=== PATIENT | male | born 1965 | race Caucasian/White ===

== ENCOUNTER 2016-06-09 16:40 | Emergency (ER) | payer MEDICAID ==
[2016-06-09] MEDS ORDERED: SODIUM CHLORIDE 0.9% 1,000 ML IV ONE (16:49)
[2016-06-09] MEDS ORDERED: KETOROLAC 60 MG/2 ML VIAL IVP STA (16:49)
[2016-06-09] MEDS ORDERED: HYDROmorphone 1 MG/ML SYRINGE IVP STA ×3 (16:49→20:31)
[2016-06-09] MEDS ORDERED: ONDANSETRON 4 MG/2 ML VIAL IVP STA (16:49)
[2016-06-09] MEDS ORDERED: HYDROmorphone 1 MG/ML SYRINGE ONE ×3 (17:01→20:39)
[2016-06-09] MEDS ORDERED: KETOROLAC 30 MG/ML VIAL ONE (17:01)
[2016-06-09] MEDS ORDERED: ONDANSETRON 4 MG/2 ML VIAL ONE (17:01)
[2016-06-09] MEDS ORDERED: oxyCODONE/ACET 5/325 Prepack 4 PO STA (20:27)
[2016-06-09] MEDS ORDERED: oxyCODONE/ACET 5/325 Prepack 4 PO ONE (20:31)
== END 2016-06-09 20:51 | disposition home or self-care (01) ==
DX: T83.84XA Pain due to genitourinary prosthetic devices, implants and grafts, initial encounter (principal); N13.2 Hydronephrosis with renal and ureteral calculous obstruction
CPT/HCPCS: 36415; 76770; 80048; 81001; 87086; 96374; 96375; 96376; 99284; J1170

== ENCOUNTER 2016-08-20 19:24 | Emergency (ER) | payer MEDICAID ==
[2016-08-20] MEDS ORDERED: HYDROcod/ACETAM 5/325 MG TABLET PO STA (19:38)
[2016-08-20] MEDS ORDERED: HYDROcod/ACETAM 5/325 MG TABLET ONE (19:40)
--- NOTE | 2016-08-20 19:47 | ED Physician Documentation ---
History of Present Illness - Stated complaint Stated Complaint: MALE - Chief complaint Chief Complaint: General - History obtained from History obtained from: Patient, Family - History of Present Illness Timing: Other (One month of worsening right left-sided rectal pain, especially when he is a bowel movement. Bowel movements have been normal. Had a colonoscopy done in March for hematochezia showing internal hemorrhoids. He has had hematochezia with this as well. No help with Preparation H.) Review of Systems Constitutional: denies: Fever, Chills Throat: denies: Dental pain / toothache, Sore throat Cardiac: denies: Chest pain / pressure, Palpitations Respiratory: denies: Dyspnea, Cough GI: denies: Abdominal Pain, Nausea, Constipation, Diarrhea PD PAST MEDICAL HISTORY - Past Medical History Cardiovascular: None Neuro: Head injury Endocrine/Autoimmune: None Psych: None Musculoskeletal: Chronic back pain - Past Surgical History Past Surgical History: Yes General: Appendectomy Ortho: Other - Present Medications Home Medications: Ambulatory Orders Medication Instructions Recorded Confirmed Hydrocodone/Acetaminophen [Vicodin 1 tab PO DAILY 01/01/16 06/09/16 Es 7.5-300 mg Tablet] Oxycodone HCl/Acetaminophen 1 - 2 tab PO Q4H PRN #15 tablet 06/09/16 [Percocet 5-325 mg Tablet] Amox/Clav 875/125 [Augmentin] 1 each PO Q12H #14 tablet 08/20/16 HYDROcod/ACETAM 5/325 [[place] 5/325] 1 - 2 ea PO Q6H PRN #10 tablet 08/20/16 - Allergies Allergies/Adverse Reactions: Allergies Allergy/AdvReac Type Severity Reaction Status Date / Time No Known Drug Allergies Allergy Verified 04/10/16 00:48 - Social History Does the pt smoke?: No Smoking Status: Never smoker Does the pt drink ETOH?: Yes Does the pt have substance abuse?: No - Immunizations Immunizations are current?: Yes - POLST Patient has POLST: No PD ED PE NORMAL - Vitals Vital signs reviewed: Yes - General General: Alert and oriented X 3, No acute distress - Abdomen Abdomen: Soft, Non tender - Male Male : Other (Tender the left side of the rectum with mild warmth but no obvious cellulitis or abscess. No external hemorrhoid.) - Neuro Neuro: Alert and oriented X 3, Normal speech - Psych Psych: Normal mood, Normal affect Results - Vitals Vitals: Vital Signs - 24 hr 08/20/16 19:27 Temperature 37.1 C Heart Rate 86 Respiratory 20 Rate Blood Pressure 110/80 O2 Saturation 96 Oxygen O2 Source Room air - Labs Labs: Laboratory Tests 08/20/16 08/20/16 19:47 19:47 WBC 8.0 RBC 4.56 L Hgb 14.7 Hct 42.0 MCV 92.1 MCH 32.2 H MCHC 34.9 RDW 13.3 Plt Count 260 MPV 8.3 Neut # 4.4 Lymph # 2.6 Wake # 0.4 Eos # 0.5 Baso # 0.1 Absolute Nucleated RBC 0.00 Nucleated RBCs 0.1 Sodium 139 Potassium 4.0 Chloride 103 Carbon Dioxide 29 Anion Gap 7.0 BUN 24 H Creatinine 1.3 H Estimated GFR (MDRD) 58 L Glucose 105 H Calcium 9.8 Total Bilirubin 0.4 AST 23 ALT 22 Alkaline Phosphatase 63 Total Protein 7.7 Albumin 4.4 Globulin 3.3 Albumin/Globulin Ratio 1.3 Lipase 78 H - Rads (name of study) CT Pelvis Radiology: EMP read contemporaneously (NAD) PD MEDICAL DECISION MAKING - ED course ED course: He has rectal pain, some tenderness and warmth on the left side, given the exam I was most concerned about an abscess. There is no evidence of external hemorrhoid. CT shows no evidence of abscess. I wonder if she might have a very early abscess or cellulitis. We will place him on antibiotics and painkillers. Departure - Departure Disposition: 01 Home, Self Care Clinical Impression: Rectal pain Condition: Good Record reviewed to determine appropriate education?: Yes Instructions: ED Hematochezia Stable Prescriptions: Amox/Clav 875/125 [Augmentin] 1 each PO Q12H #14 tablet HYDROcod/ACETAM 5/325 [[place] 5/325] 1 - 2 ea PO Q6H PRN #10 tablet PRN Reason: Pain Comments: Call your doctor to arrange a follow up appointment. Make the next available appointment. In the interim return anytime if worse or if new symptoms develop. Do not drink or drive while on narcotic pain medicine. Note that many narcotic pain relievers also contain tylenol/acetaminophen. Please ensure that your total dose of acetaminophen from all sources does not exceed 3 grams (3000mg) per day. You may constipated on this medication, take a stool softener such as "Colace" twice a day while you are on it. Also recommend a [id number] laxative such as senna or MiraLAX any day that you do not have a bowel movement. If you received narcotic pain medication in the emergency department, do not drive or operate machinery for the next 24 hours.
[2016-08-20 19:56] LABS: BASOPHILS # (AUTO) 0.1 10^3/uL (0.0-0.1); BASOPHILS % (AUTO) 0.9 %; EOSINOPHILS # (AUTO) 0.5 10^3/uL (0.0-0.7); EOSINOPHILS % (AUTO) 6.1 %; HGB - HEMOGLOBIN 14.7 g/dL (14.0-18.0); LYMPHOCYTES # (AUTO) 2.6 10^3/uL (1.5-3.5); LYMPHOCYTES % (AUTO) 32.7 %; MEAN CORPUSCULAR HEMOGLOBIN 32.2 pg (27.0-31.0); MEAN CORPUSCULAR HGB CONC 34.9 g/dL (32.0-36.0); MEAN CORPUSCULAR VOLUME 92.1 fL (80.0-94.0); MEAN PLATELET VOLUME 8.3 fL (7.4-11.4); MONOCYTES # (AUTO) 0.4 10^3/uL (0.0-1.0); NEUTROPHILS # (AUTO) 4.4 10^3/uL (1.5-6.6); NEUTROPHILS % (AUTO) 55.3 %; NUCLEATED RED BLOOD CELLS AUTO 0.1 /100WBC; RED BLOOD COUNT 4.56 10^6/uL (4.70-6.10); RED CELL DISTRIBUTION WIDTH 13.3 % (12.0-15.0)
[2016-08-20] MEDS ORDERED: IOPAMIDOL-300 100 ML VIAL IVP ONE (20:06)
[2016-08-20 20:09] LABS: ALBUMIN/GLOBULIN RATIO 1.3 (1.0-2.2); BILIRUBIN,TOTAL 0.4 mg/dL (0.2-1.0); CALCIUM 9.8 mg/dL (8.5-10.3); CREATININE 1.3 mg/dL (0.6-1.2); TOTAL PROTEIN 7.7 g/dL (6.7-8.2)
--- NOTE | 2016-08-20 20:27 | CT Preliminary Report ---
Exam: CT Pelvis W/ IMPRESSION: No evidence of abscess or acute inflammatory process within the pelvis. [facility] SITE ID: [id number]
--- NOTE | 2016-08-20 20:29 | CT Report ---
EXAM: CT PELVIS EXAM DATE: 08/20/2016 08:08 PM. CLINICAL HISTORY: Rectal pain, poss L side abscess, no PO. COMPARISONS: 04/09/2016 CT. TECHNIQUE: Routine helical CT imaging was performed through the pelvis. IV contrast: 100 mL Isovue-30 0. Enteric contrast: No. Reconstructions: Coronal and sagittal. In accordance with CT protocol optimization, one or more of the following dose reduction techniques w ere utilized for this exam: automated exposure control, adjustment of mA and/or KV based on patient s ize, or use of iterative reconstructive technique. FINDINGS: Visualized Abdominal Organs: There is a 4.3 cm right renal cyst. Tiny hypodensity at the lower pole o f the left kidney most likely representing a cyst. Peritoneal Cavity/Bowel: Normal. No free fluid, free air or adenopathy. No masses or acute inflammato ry process. The appendix is well visualized and normal. Scattered diverticula. Pelvic Organs: Normal. The bladder, rectum, and visualized pelvic organs are within normal limits. Vasculature: No aneurysms or other significant abnormality. Bones: No significant abnormality. Other: None. IMPRESSION: No evidence of abscess or acute inflammatory process within the pelvis. [facility] Referring Provider Line: [phone] SITE ID: [id number]
[2016-08-20] MEDS ORDERED: HYDROcod/ACET 5/325 Prepack 6 PO STA (20:31)
[2016-08-20] MEDS ORDERED: AMOX/CLAV 875 MG/125 MG TABLET PO STA (20:31)
[2016-08-20] MEDS ORDERED: AMOX/CLAV 875 MG/125 MG TABLET PO ONE (20:33)
[2016-08-20] MEDS ORDERED: HYDROcod/ACET 5/325 Prepack 6 PO ONE (20:33)
[2016-08-20 20:47] VITALS: BP 113/77
== END 2016-08-20 20:47 | disposition home or self-care (01) ==
LOC: ED 19:24
DX: K62.89 Other specified diseases of anus and rectum (principal)
CPT/HCPCS: 36415; 72193; 80053; 83690; 85025; 99283; 99284; A9270; Q9967

== ENCOUNTER 2017-05-22 08:45 | Outpatient (CLI) | payer MEDICAID, OTHER ==
[2017-05-22 13:17] LABS: BASOPHILS # (AUTO) 0.1 10^3/uL (0.0-0.1); BASOPHILS % (AUTO) 0.8 %; EOSINOPHILS # (AUTO) 0.5 10^3/uL (0.0-0.7); EOSINOPHILS % (AUTO) 7.2 %; HGB - HEMOGLOBIN 14.8 g/dL (14.0-18.0); LYMPHOCYTES % (AUTO) 27.6 %; MEAN CORPUSCULAR HEMOGLOBIN 32.1 pg (27.0-31.0); MEAN CORPUSCULAR HGB CONC 34.6 g/dL (32.0-36.0); MEAN CORPUSCULAR VOLUME 92.9 fL (80.0-94.0); MEAN PLATELET VOLUME 8.4 fL (7.4-11.4); MONOCYTES # (AUTO) 0.5 10^3/uL (0.0-1.0); MONOCYTES % (AUTO) 6.3 %; NEUTROPHILS # (AUTO) 4.2 10^3/uL (1.5-6.6); NEUTROPHILS % (AUTO) 58.1 %; PLT - PLATELET COUNT 265 10^3/uL (130-450); RED BLOOD COUNT 4.61 10^6/uL (4.70-6.10); RED CELL DISTRIBUTION WIDTH 13.3 % (12.0-15.0); WHITE BLOOD COUNT 7.2 x10^3/uL (4.8-10.8)
[2017-05-22 13:18] LABS: ALBUMIN 4.1 g/dL (3.2-5.5); ALBUMIN/GLOBULIN RATIO 1.2 (1.0-2.2); ALKALINE PHOSPHATASE 62 IU/L (42-121); ALT ALANINE AMINOTRANSFERASE 24 IU/L (10-60); AST ASPARTATE AMINOTRANSFERASE 29 IU/L (10-42); BILIRUBIN,TOTAL 0.6 mg/dL (0.2-1.0); BUN - BLOOD UREA NITROGEN 23 mg/dL (6-20); CALCIUM 9.5 mg/dL (8.5-10.3); CARBON DIOXIDE - CO2 25 mmol/L (21-32); CHLORIDE 107 mmol/L (101-111); CHOL/HDL RATIO 5.5 (<5.0); CHOLESTEROL 170 mg/dL; CREATININE 1.2 mg/dL (0.6-1.2); GFR - MDRD 63 (>89); GLUCOSE 105 mg/dL (70-100); HDL CHOLESTEROL 31 mg/dL; LDL CHOLESTEROL,CALCULATED 84 mg/dL; LDL/HDL RATIO 2.7 (<3.6); SODIUM 138 mmol/L (135-145); TOTAL PROTEIN 7.4 g/dL (6.7-8.2); VLDL CHOLESTEROL 55 mg/dL
== END 2017-05-22 08:46 | disposition home or self-care (01) ==
LOC: LAB.WCP 08:45
PROVIDERS: ATTEND Family Medicine
DX: Z00.00 Encounter for general adult medical examination without abnormal findings (principal); Z12.5 Encounter for screening for malignant neoplasm of prostate
CPT/HCPCS: 36415; 80053; 80061; 83721; 84153; 84443; 85025

== ENCOUNTER 2019-04-23 20:45 | Emergency (ER) | payer SELFPAY ==
[2019-04-23] MEDS ORDERED: CHERRY SYRUP 10 ML UDC PO ONE (21:29)
[2019-04-23] MEDS ORDERED: HYDROmorphone 2 MG/ML VIAL IM STA (21:29)
[2019-04-23] MEDS ORDERED: DEXAMETHASONE 10 MG/ML VIAL PO STA (21:29)
[2019-04-23] MEDS ORDERED: GABAPENTIN 100 MG CAPSULE PO STA (21:29)
[2019-04-23] MEDS ORDERED: KETOROLAC 60 MG/2 ML VIAL IM STA (21:29)
--- NOTE | 2019-04-23 21:32 | ED Physician Documentation ---
History of Present Illness - Stated complaint Stated Complaint: RT ARM PX/NUMBNESS - Chief complaint Chief Complaint: Ext Problem - History obtained from History obtained from: Patient - History of Present Illness Timing: Other (He woke from a nap 2 days ago with partial numbness in the right third and fourth fingers associated with a burning pain across the top of his hand with shocklike hurting sensations up to the neck.) Review of Systems Constitutional: denies: Fever, Chills Cardiac: reports: Reviewed and negative Respiratory: reports: Reviewed and negative PD PAST MEDICAL HISTORY - Past Medical History Past Medical History: Yes Cardiovascular: None Endocrine/Autoimmune: None Psych: None Musculoskeletal: Chronic back pain - Past Surgical History Past Surgical History: Yes General: Appendectomy Ortho: Other - Present Medications Home Medications: Ambulatory Orders Medication Instructions Recorded Confirmed Hydrocodone/Acetaminophen [Vicodin 1 tab PO DAILY 01/01/16 06/09/16 Es 7.5-300 mg Tablet] Oxycodone HCl/Acetaminophen 1 - 2 tab PO Q4H PRN #15 tablet 06/09/16 [Percocet 5-325 mg Tablet] Amox/Clav 875/125 [Augmentin] 1 each PO Q12H #14 tablet 08/20/16 HYDROcod/ACETAM 5/325 [[place] 5/325] 1 - 2 ea PO Q6H PRN #10 tablet 08/20/16 Gabapentin [Neurontin] 300 mg PO TID #60 capsule 04/23/19 Oxycodone HCl/Acetaminophen 1 - 2 each PO Q6H PRN #14 tablet 04/23/19 [Percocet 5-325 mg Tablet] predniSONE [Deltasone] 20 mg PO [id number] #21 tab 04/23/19 - Allergies Allergies/Adverse Reactions: Allergies Allergy/AdvReac Type Severity Reaction Status Date / Time No Known Drug Allergies Allergy Verified 04/23/19 20:52 - Social History Does the pt smoke?: No Smoking Status: Never smoker Does the pt drink ETOH?: Yes Does the pt have substance abuse?: No - Immunizations Immunizations are current?: Yes - POLST Patient has POLST: No PD ED PE NORMAL - General General: Alert and oriented X 3, No acute distress - Neck Neck: Supple, no meningeal sign, No bony TTP - Extremities Extremities: Other (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 He has partial numbness in the right C7 distribution. Upper extremity reflexes are symmetric.) - Neuro Neuro: Alert and oriented X 3, Normal speech Results - Vitals Vitals: Vital Signs - 24 hr 04/23/19 20:52 Temperature 36.9 C Heart Rate 72 Respiratory 14 Rate Blood Pressure 118/76 O2 Saturation 98 Oxygen O2 Source Room air PD MEDICAL DECISION MAKING - ED course ED course: 53-year-old gentleman who has a history of multiple herniated disks in the neck and the back presents with an acute cervical radiculopathy which is treated with steroids, pain medication and gabapentin pending primary care follow-up. Departure - Departure Disposition: Home, Self Care Clinical Impression: Cervical radiculopathy at C7 Condition: Good Record reviewed to determine appropriate education?: Yes Instructions: ED Cervical Radiculopathy Prescriptions: Gabapentin [Neurontin] 300 mg PO TID #60 capsule Oxycodone HCl/Acetaminophen [Percocet 5-325 mg Tablet] 1 - 2 each PO Q6H PRN #14 tablet PRN Reason: pain predniSONE [Deltasone] 20 mg PO [id number] #21 tab Comments: Follow-up With your primary care physician if symptoms are persistent, for consideration of physical therapy, plus or minus an MRI and/or spinal Surgery referral.
[2019-04-23] MEDS ORDERED: oxyCODONE/ACET 5/325 Prepack 4 PO STA (21:33)
[2019-04-23 22:01] VITALS: BP 133/93
== END 2019-04-23 22:00 | disposition home or self-care (01) ==
LOC: ED 20:45
DX: M54.12 Radiculopathy, cervical region (principal)
CPT/HCPCS: 96372; 99283; A9270; J1170

== ENCOUNTER 2019-07-09 14:32 | Outpatient (CLI) | payer SELFPAY | END 2019-07-09 14:33 | disposition home or self-care (01) | LOC: COV 14:32 | PROVIDERS: ATTEND Family Medicine | DX: R05 Cough (principal); R50.9 Fever, unspecified; Z20.828 Contact with and (suspected) exposure to other viral communicable diseases | CPT/HCPCS: 81599 ==

== ENCOUNTER 2019-12-27 14:19 | Outpatient (CLI) | payer SELFPAY | END 2019-12-27 14:20 | disposition home or self-care (01) | LOC: COV 14:19 | PROVIDERS: ATTEND Surgery | DX: Z01.818 Encounter for other preprocedural examination (principal); K62.5 Hemorrhage of anus and rectum; K60.3 Anal fistula; Z20.828 Contact with and (suspected) exposure to other viral communicable diseases ==

== ENCOUNTER 2019-12-31 10:26 | Day surgery (SDC) | payer SELFPAY ==
[~2019-12-31 10:26] MED LIST: LACTATED RINGERS 1,000 ML IV ONE
--- NOTE | 2019-12-31 13:34 | ANESTHESIA ---
Pre-Anesthesia VS, & Labs - Diagnosis rectal bleeding, anal fissure - Procedure Anoscopy, fistulotomy Vital Signs: Temp Pulse Resp BP Pulse Ox 36.1 C L 99 20 116/79 99 12/31/19 10:42 12/31/19 10:42 12/31/19 10:42 12/31/19 10:42 12/31/19 10:42 Height 5 ft 11 in Weight (kg) 111.8 kg Body Mass Index 31.6 - NPO >8 hours - Lab Results Lab results reviewed: Yes Home Medications and Allergies Home Medications: Ambulatory Orders No Known Home Medications 12/20/19 No Known Home Medications 12/20/19 Allergies/Adverse Reactions: Allergies Allergy/AdvReac Type Severity Reaction Status Date / Time No Known Drug Allergies Allergy Verified 04/23/19 20:52 Anes History & Medical History - Anesthetic History Anesthesia Complications: reports: No previous complications Family history of Anesthesia Complications: Denies Family history of Malignant Hyperthermia: Denies - Medical History Cardiovascular: reports: None Pulmonary: reports: None Gastrointestinal: reports: GERD Urinary: reports: Kidney stones Musculoskeletal: reports: Chronic back pain, Other Endocrine/Autoimmune: reports: None Skin: reports: None Smoking Status: Current every day smoker Psychosocial: reports: Cannabis - Surgical History General: Appendectomy, Colonoscopy Orthopedic: Spine surgery, Other Exam General: Alert, Oriented x3, Cooperative, No acute distress Dental: WNL Mouth Openin Fingerbreadth Neck Mobility: Normal Mallampati classification: II Respiratory: Lungs clear, Normal breath sounds, No respiratory distress, No accessory muscle use Cardiovascular: Regular rate, Normal S1, Normal S2, No murmurs Plan Anesthesia Type: General (back up), MAC Consent for Procedure(s) Verified and Reviewed: Yes Code Status: Attempt Resuscitation ASA classification: 2-Mild systemic disease Is this case an emergency?: No
[2019-12-31] MEDS ORDERED: MORPHINE 2 MG/ML CARPUJECT IVP PRN (13:35)
[2019-12-31] MEDS ORDERED: NALOXONE 0.4 MG/ML VIAL IVP PRN (13:35)
[2019-12-31] MEDS ORDERED: ATROPINE ABBOJECT 1 MG/10 ML SYRINGE IVP PRN (13:35)
[2019-12-31] MEDS ORDERED: ONDANSETRON 4 MG/2 ML VIAL IVP PRN (13:35)
[2019-12-31] MEDS ORDERED: fentaNYL 100 MCG/2 ML VIAL IVP PRN (13:35)
[2019-12-31] MEDS ORDERED: ePHEDrine 50 MG/ML VIAL IVP PRN (13:35)
[2019-12-31] MEDS ORDERED: METOCLOPRAMIDE 10 MG/2 ML VIAL IVP PRN (13:35)
[2019-12-31] MEDS ORDERED: HYDROmorphone 0.5 MG/0.5 ML SYRINGE IVP PRN (13:35)
[2019-12-31] MEDS ORDERED: LACTATED RINGERS 1,000 ML IV SCH (14:00)
[2019-12-31] MEDS ORDERED: METHYLENE BLUE 0.5% 50 MG/10 ML AMPULE ONE (14:12)
[2019-12-31] MEDS ORDERED: LIDOCAINE 1%-EPI 1:100000 20 ML MDV ONE (14:17)
[2019-12-31] MEDS ORDERED: LIDOCAINE 1% 50 ML MDV ONE (14:17)
[2019-12-31] MEDS ORDERED: LIDOCAINE OINTMENT 5% 35.44 GM TUBE ONE (14:17)
[2019-12-31] MEDS ORDERED: BUPIVACAINE 0.25%-EPI 1:200000 PF 30 ML VIAL ONE (14:17)
[2019-12-31] MEDS ORDERED: KETAMINE 500 MG/10 ML VIAL IVP ONE (14:24)
[2019-12-31] MEDS ORDERED: PROPOFOL 200 MG/20 ML VIAL IVP ONE (14:24)
[2019-12-31] MEDS ORDERED: MIDAZOLAM 2 MG/2 ML VIAL IVP ONE (14:24)
[2019-12-31] MEDS ORDERED: GLYCOPYRROLATE 1 MG/5 ML VIAL IVP ONE (14:24)
[2019-12-31] MEDS ORDERED: LIDOCAINE 1% 10 ML MDV SUBQ ONE ×2 (14:54)
[2019-12-31] MEDS ORDERED: BUPIVACAINE 0.25%-EPI 1:200000 PF 10 ML VIAL SUBQ ONE ×2 (14:55)
[2019-12-31] MEDS ORDERED: METHYLENE BLUE 0.5% 50 MG/10 ML AMPULE IR ONE ×2 (14:59)
[2019-12-31] MEDS ORDERED: HYDROGEN PEROXIDE 3% 473 ML BOTTLE TOP ONE (15:00)
[2019-12-31] MEDS ORDERED: LACTATED RINGERS 1,000 ML IV ONE (15:17)
[2019-12-31] MEDS: ACETAMINOPHEN 1,000 MG/100 ML 100 ML IV ONE ×2 (15:20→15:28)
--- NOTE | 2019-12-31 15:21 | ANESTHESIA POST OP EVALUATION ---
Anesthesia Post Eval - Post Anesthesia Eval Vitals: Last Vital Signs Temp 36.8 C 12/31/19 15:15 Pulse 81 12/31/19 15:15 Resp 16 12/31/19 15:15 BP 116/79 12/31/19 15:15 Pulse Ox 98 12/31/19 15:15 CV Function Including HR & BP: positive: Stable Pain Control: positive: Satisfactory Nausea & Vomiting: positive: Negative Mental Status: positive: Baseline Respiratory Status: Airway Patent Hydration Status: Satisfactory Anesthesia Complications: positive: None
[2019-12-31] MEDS ORDERED: ACETAMINOPHEN 1,000 MG/100 ML 100 ML IV ONE (15:22)
[2019-12-31] MEDS ORDERED: HYDROcod/ACETAM 10 MG/325 MG TABLET PO PRN (15:26)
[2019-12-31] MEDS ORDERED: HYDROcod/ACETAM 5/325 MG TABLET ONE (15:57)
[2019-12-31 16:00] VITALS: BP 138/73
--- NOTE | 2020-01-01 03:14 | OPERATIVE REPORT ---
DATE OF SERVICE: 12/31/2019 Physician: Arnel Higuera MD PREOPERATIVE DIAGNOSIS: Chronic anal discomfort and appearance of fistula on exam. POSTOPERATIVE DIAGNOSIS: Anal fissure without fistula. PROCEDURE PERFORMED: Examination under anesthesia. SURGEON: Arnel Higuera MD UNIT SECRETARY: None. ANESTHESIA: Monitored anesthesia care, IV sedation and local anesthesia. ESTIMATED BLOOD LOSS: None. DRAINS: None. COMPLICATIONS: None. FINDINGS: Patient did have evidence of a posterior fissure and a sentinel tag. He did have small pockets under the anoderm; however, no complete fistula tract. INDICATIONS FOR PROCEDURE: The patient is a healthy 54-year-old gentleman who has had perianal discomfort and significant bleeding on and off for many years. He has had workup with colonoscopy. He has had hemorrhoid banding in the past. He continues to have fairly frequent bleeding. On physical examination, he appeared to possibly have a superficial fistula at 5 o'clock. Examination under anesthesia was offered and recommended. Risks discussed, alternatives discussed, all questions answered, and consent obtained. DETAILS OF PROCEDURE The patient was properly identified and brought to the operating room and placed in supine position. Monitored anesthesia care was given as well as IV sedation. He was repositioned in candy cane stirrups. He was prepped and draped in a sterile fashion and given preoperative antibiotics. Local anesthetic was given. External exam showed a posterior fissure and a sentinel tag. Methylene blue with hydrogen peroxide was then injected into this area looking for a fistula tract. Anoscopy was also performed, which was essentially normal. There were small flaps of anoderm cephalad and distal of the fissure, however, no fistula. These small pockets were removed to be certain there was not a fistula tract. Care was taken to avoid injury to the underlying sphincter musculature. He did not have an overly tense internal sphincter. There was no thick band of the internal sphincter. A lateral internal sphincterotomy was not performed. Hemostasis was ensured. The patient was awakened and brought to recovery in good condition. TD: 12/31/2019 17:28 [facility]
== END 2019-12-31 10:27 | disposition home or self-care (01) ==
LOC: SDS 10:26
PROVIDERS: ATTEND Surgery
DX: K60.1 Chronic anal fissure (principal); G47.30 Sleep apnea, unspecified; E66.9 Obesity, unspecified; Z68.35 Body mass index [BMI] 35.0-35.9, adult; F17.200 Nicotine dependence, unspecified, uncomplicated
CPT/HCPCS: 46615; A9270; J0131; J7120

== ENCOUNTER 2020-01-26 15:37 | Emergency (ER) | payer SELFPAY ==
--- NOTE | 2020-01-26 15:45 | ED Physician Documentation ---
PD HPI SKIN - Stated complaint Stated Complaint: SPIDER BITE, MOORE - Chief complaint Chief Complaint: Wound - History obtained from History obtained from: Patient - History of Present Illness Timing - onset: How many days ago (3) Timing - duration: Days (3) Timing - details: Gradual onset (3-4 days ago, noted some redness and tender right buttock area and it has gradually worsened. Seen by provider in [place] and Rx Doxycycline 2 days ago. Has gotten worse into today, with appearance of white pustule now.) Location: Other (right buttock.) Quality / character: Painful, Discolored (red), Raised, Swelling. No: Draining Associated symptoms: No: Fever, Abd pain, N/V/D Similar symptoms before: Has not had sx before Recently seen: Clinic (2 days ago), Other (he had anorectal exam with sedation in OR 3 weeks ago to eval for possible perirectal fistula, but none found. No skin problems around that time.) Review of Systems Constitutional: reports: Myalgias, Fatigue. denies: Fever, Chills Nose: denies: Rhinorrhea / runny nose, Congestion Throat: denies: Sore throat Respiratory: denies: Cough GI: denies: Nausea, Vomiting Skin: reports: Lesions (has abscess appearing lesion right buttock. No direct perirectal redness nor swelling. The involved area has raised swelling, local fluctuant feeling, small white pustule that is not draining. Area is red, warm and tender. Bedside U/S showing small 1-1.5 cm area of fluid just under the skin only.) PD PAST MEDICAL HISTORY - Past Medical History Cardiovascular: None Respiratory: None Endocrine/Autoimmune: None GI: GERD : Kidney stones HEENT: Chronic sinusitis Psych: Depression Musculoskeletal: Chronic back pain, Other Derm: None - Past Surgical History Past Surgical History: Yes General: Appendectomy, Colonoscopy Ortho: Spine surgery, Other - Present Medications Home Medications: Ambulatory Orders Medication Instructions Recorded Confirmed Hydrocodone/Acetaminophen 1 each PO Q4HR PRN #15 tablet 12/31/19 [Hydrocodone-Acetamin 5-325 mg] Hydrocodone/Acetaminophen 1 each PO Q6H PRN #15 tablet 01/26/20 [Hydrocodone-Acetamin 5-325 mg] - Allergies Allergies/Adverse Reactions: Allergies Allergy/AdvReac Type Severity Reaction Status Date / Time No Known Drug Allergies Allergy Verified 01/26/20 15:40 - Social History Does the pt smoke?: No Smoking Status: Current every day smoker Does the pt drink ETOH?: Yes Does the pt have substance abuse?: No - Immunizations Immunizations are current?: Yes - POLST Patient has POLST: No PD ED PE NORMAL - Vitals Vital signs reviewed: Yes - General General: Alert and oriented X 3, Well developed/nourished, Other (appears in pain on exam of buttock area. ) - Abdomen Abdomen: Soft, Non tender - Rectal Rectal: Other (buttock area with rounded, raised, very tender, mildly fluctuant area with central small 2 mm pustule. No tenderness immediate perirectal area. Bedside U/S with 1-1.5 cm area of fluid just under skin. No deeper collection nor obvious fistulous tract seen. ) Results - Vitals Vitals: Vital Signs - 24 hr 01/26/20 01/26/20 01/26/20 15:40 15:52 16:53 Temperature 36.8 C 36.8 C 36.8 C Heart Rate 100 100 98 Respiratory 16 16 16 Rate Blood Pressure 109/89 H 109/89 H 115/80 O2 Saturation 95 96 100 Oxygen O2 Source Room air Procedures - Abscess I&D (location) right buttock Preparation: Confirmed with ultrasound, Lidocaine 1%, With epi Incision: Incised with scalpel, Purulent drainage, Irrigated. No: Packed, Culture obtained Other: Pt tolerated well (given IM Dilaudid prior which helped with the pain.) PD MEDICAL DECISION MAKING - ED course Complexity details: considered differential (developing abscess now has localized fluid collection for drainage. ), d/w patient Departure - Departure Disposition: 01 Home, Self Care Clinical Impression: Left buttock abscess Condition: Stable Record reviewed to determine appropriate education?: Yes Instructions: ED Abscess IandD Prescriptions: Hydrocodone/Acetaminophen [Hydrocodone-Acetamin 5-325 mg] 1 each PO Q6H PRN #15 tablet PRN Reason: Pain Comments: Warm moist compresses or soaks 2-3 times a day to the area. Try to massage it gently at x2 express more purulence through the holes. Continue the antibiotic you are prescribed. Tylenol or ibuprofen if needed for pain. Hydrocodone if needed for worse pains. I would anticipate improvement over the next several days and resolution within 5 to 7 days. Discharge Date/Time: 01/26/20 16:53
[2020-01-26] MEDS ORDERED: LIDOCAINE-EPINEPH-TETRACAINE 3 ML SYRINGE TOP STA (16:00)
[2020-01-26] MEDS ORDERED: HYDROmorphone 2 MG/ML VIAL IM STA (16:01)
[2020-01-26] MEDS ORDERED: LIDOCAINE 1%-EPI 1:100000 20 ML MDV SUBQ STA (16:02)
[2020-01-26 16:54] VITALS: BP 115/80
== END 2020-01-26 16:53 | disposition home or self-care (01) ==
LOC: ED 15:37
DX: L02.31 Cutaneous abscess of buttock (principal)
CPT/HCPCS: 10060; 96372; 99283; J1170

== ENCOUNTER 2020-06-05 17:39 | Outpatient (CLI) | payer OTHER ==
--- NOTE | 2020-06-05 10:01 | XRAY Report ---
PROCEDURE: Shoulder 3 View RT INDICATIONS: RT SHOULDER PAIN TECHNIQUE: 4 views of the shoulder were acquired. COMPARISON: None. FINDINGS: Bones: No fractures. There is mild widening of the acromioclavicular interval to 7 mm.. Cortically based sclerotic foci within the proximal humerus, suggestive of nonossifying fibromas. No suspicious bony lesions. Visualized ribs appear intact. Soft tissues: No suspicious soft tissue calcifications. IMPRESSION: 1. Acromioclavicular separation. 2. 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 Reviewed by: Miroslava Faustin MD on 06/05/2020 9:59 AM PST Approved by: Miroslava Faustin MD on 06/05/2020 9:59 AM PST Station ID: [id number]
== END 2020-06-05 23:59 | disposition home or self-care (01) ==
LOC: DI.N 17:39
PROVIDERS: ATTEND Physician Assistant
DX: M25.511 Pain in right shoulder (principal); S43.101A Unspecified dislocation of right acromioclavicular joint, initial encounter

== ENCOUNTER 2020-06-29 16:36 | Emergency (ER) | payer MEDICAID ==
[2020-06-29 17:00] LABS: BASOPHILS # (AUTO) 0.1 10^3/uL (0.0-0.1); BASOPHILS % (AUTO) 1.1 %; EOSINOPHILS # (AUTO) 0.4 10^3/uL (0.0-0.7); EOSINOPHILS % (AUTO) 5.1 %; HCT - HEMATOCRIT 46.8 % (42.0-52.0); HGB - HEMOGLOBIN 16.4 g/dL (14.0-18.0); LYMPHOCYTES % (AUTO) 35.6 %; MEAN CORPUSCULAR HEMOGLOBIN 31.8 pg (27.0-31.0); MEAN CORPUSCULAR VOLUME 90.9 fL (80.0-94.0); MEAN PLATELET VOLUME 9.2 fL (7.4-11.4); MONOCYTES # (AUTO) 0.6 10^3/uL (0.0-1.0); MONOCYTES % (AUTO) 6.6 %; NEUTROPHILS # (AUTO) 4.3 10^3/uL (1.5-6.6); NEUTROPHILS % (AUTO) 51.4 %; PLT - PLATELET COUNT 302 10^3/uL (130-450); RED BLOOD COUNT 5.15 10^6/uL (4.70-6.10); RED CELL DISTRIBUTION WIDTH 12.7 % (12.0-15.0); WHITE BLOOD COUNT 8.4 x10^3/uL (4.8-10.8)
[2020-06-29 17:14] LABS: ALBUMIN 4.5 g/dL (3.2-5.5); ALBUMIN/GLOBULIN RATIO 1.3 (1.0-2.2); BILIRUBIN,TOTAL 0.8 mg/dL (0.2-1.0); CALCIUM 9.3 mg/dL (8.5-10.3); CREATININE 1.2 mg/dL (0.6-1.2); POTASSIUM 3.9 mmol/L (3.5-5.0); TOTAL PROTEIN 8.1 g/dL (6.7-8.2)
[2020-06-29] MEDS ORDERED: SODIUM CHLORIDE 0.9% 1,000 ML IV STA (17:23)
[2020-06-29] MEDS ORDERED: IOVERSOL 320 100 ML VIAL IVP ONE ×2 (17:37→17:51)
--- NOTE | 2020-06-29 17:49 | ED Physician Documentation ---
PD HPI ABD PAIN - Stated complaint Stated Complaint: ABD/BACK PAIN, DIZZY - Chief complaint Chief Complaint: Abd Pain - History obtained from History obtained from: Patient - History of Present Illness Pain level max: 6 Pain level now: 5 Quality: Aching, Pain Location: All over / everywhere Radiation: Chest Improved by: Eating, Laying still, Vomiting Worsened by: Eating, Moving, Breathing Associated symptoms: Nausea, Constipation. No: Fever, Vomiting, Hematemesis, Diarrhea, Melena, Hematochezia, Dysuria, Hematuria, Chest pain, Dizzy Recently seen: Not recently seen - Additional information Additional information: 54-year-old male presents to the emergency department with left lower quadrant abdominal pain for the past 2 to 3 days. Nothing seems to really make it better or worse. He states that he stopped using marijuana recently and has been a heavy marijuana user since age 9. 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 He has stopped all drug use. He states he has had some nausea, no fevers has had some constipation, no diarrhea, no blood in the stool. Has never had similar symptoms. Review of Systems Ten Systems: 10 systems reviewed and negative Constitutional: denies: Fever, Chills Throat: denies: Sore throat Cardiac: denies: Chest pain / pressure Respiratory: denies: Dyspnea, Cough GI: denies: Vomiting, Hematemesis, Bloody / black stool : denies: Dysuria, Frequency, Hesitancy Skin: denies: Rash Musculoskeletal: denies: Neck pain, Back pain Neurologic: denies: Headache PD PAST MEDICAL HISTORY - Past Medical History Cardiovascular: None Respiratory: None Endocrine/Autoimmune: None GI: GERD : Kidney stones HEENT: Chronic sinusitis Psych: Depression Musculoskeletal: Chronic back pain, Other Derm: None Other Past Medical History: prolapse mitral valve - Past Surgical History Past Surgical History: Yes General: Appendectomy, Colonoscopy Ortho: Spine surgery, Other - Present Medications Home Medications: Ambulatory Orders Medication Instructions Recorded Confirmed No Known Home Medications 06/29/20 06/29/20 - Allergies Allergies/Adverse Reactions: Allergies Allergy/AdvReac Type Severity Reaction Status Date / Time No Known Drug Allergies Allergy Verified 06/29/20 16:42 - Social History Does the pt smoke?: Yes Smoking Status: Current every day smoker Does the pt drink ETOH?: Yes Does the pt have substance abuse?: Yes Substance Use and Type: Marijuana - Immunizations Immunizations are current?: Yes - POLST Patient has POLST: No PD ED PE NORMAL - Vitals Vital signs reviewed: Yes - General General: Alert and oriented X 3, No acute distress, Well developed/nourished - HEENT HEENT: PERRL, Moist mucous membranes - Neck Neck: Supple, no meningeal sign - Cardiac Cardiac: RRR, Strong equal pulses - Respiratory Respiratory: No respiratory distress, Clear bilaterally - Abdomen Abdomen: Soft, Non distended, Other (Tender to palpation left lower quadrant. No peritoneal signs.) - Back Back: No CVA TTP, No spinal TTP - Derm Derm: Warm and dry - Extremities Extremities: No edema, No calf tenderness / cord - Neuro Neuro: Alert and oriented X 3 - Psych Psych: Normal mood, Normal affect Results - Vitals Vitals: Vital Signs - 24 hr 06/29/20 06/29/20 06/29/20 16:40 17:56 18:00 Temperature 36.3 C L Heart Rate 90 62 64 Respiratory 18 11 L 9 L Rate Blood Pressure 146/90 H 123/88 H 116/89 H O2 Saturation 96 99 100 06/29/20 06/29/20 18:30 19:27 Temperature Heart Rate 69 73 Respiratory 11 L 18 Rate Blood Pressure 138/91 H 133/91 H O2 Saturation 98 99 Oxygen O2 Source Room air - Labs Labs: Laboratory Tests 06/29/20 06/29/20 06/29/20 16:54 16:54 18:44 WBC 8.4 RBC 5.15 Hgb 16.4 Hct 46.8 MCV 90.9 MCH 31.8 H MCHC 35.0 RDW 12.7 Plt Count 302 MPV 9.2 Neut # (Auto) 4.3 Lymph # (Auto) 3.0 [place] # (Auto) 0.6 Eos # (Auto) 0.4 Baso # (Auto) 0.1 Absolute Nucleated RBC 0.00 Nucleated RBC % 0.0 Sodium 135 Potassium 3.9 Chloride 103 Carbon Dioxide 21 Anion Gap 11.0 BUN 24 H Creatinine 1.2 Estimated GFR (MDRD) 63 L Glucose 93 Calcium 9.3 Total Bilirubin 0.8 AST 24 ALT 33 Alkaline Phosphatase 50 Total Protein 8.1 Albumin 4.5 Globulin 3.6 Albumin/Globulin Ratio 1.3 Lipase 32 Urine Color YELLOW Urine Clarity CLEAR Urine pH 6.5 Ur Specific [place] 1.010 Urine Protein NEGATIVE Urine Glucose (UA) NEGATIVE Urine Ketones NEGATIVE Urine Occult Blood TRACE-INTA Urine Nitrite NEGATIVE Urine Bilirubin NEGATIVE Urine Urobilinogen 0.2 (NORMAL) Ur Leukocyte Esterase NEGATIVE Ur Microscopic Review NOT INDICATED Urine Culture Comments NOT INDICATED - Rads (name of study) CT abdomen pelvis Radiology: Prelim report reviewed, EMP read contemporaneously, See rad report (Diverticulosis. No diverticulitis. No free fluid. No hydronephrosis. Suspect punctate nonobstructing right kidney stone) PD MEDICAL DECISION MAKING - ED course Complexity details: reviewed results, re-evaluated patient, considered differential, d/w patient ED course: Patient is well-appearing, nontoxic. Afebrile. Feels much better after IV fluids. No significant findings on CT scan or laboratory testing. We will continue supportive care and have him follow-up with his doctor for further care. Tolerating p.o. without difficulty. Patient counseled regarding signs and symptoms for which I believe and urgent re-evaluation would be necessary. Patient with good understanding of and agreement to plan and is comfortable going home at this time This document was made in part using voice recognition software. While efforts are made to proofread this document, sound alike and grammatical errors may occur. Departure - Departure Disposition: 01 Home, Self Care Clinical Impression: Dehydration Abdominal pain Qualifiers: Abdominal location: unspecified location Qualified Code(s): R10.9 - Unspecified abdominal pain Condition: Good Instructions: ED Abdominal Pain Unkn Cause, ED Dehydration Follow-Up: Your,doctor in 1 week [Other] Comments: Plenty of water at home. Return if you worsen. Follow-up with your doctor for further care. There are no significant abnormalities on your labs or imaging today. Discharge Date/Time: 06/29/20 19:51
--- NOTE | 2020-06-29 18:00 | CT Report ---
PROCEDURE: Abdomen/Pelvis W INDICATIONS: LLQ pain, possible diverticulitis CONTRAST: IV CONTRAST: Optiray 320 ml: 100 PO CONTRAST: *NO PO CONTRAST TECHNIQUE: After the administration of intravenous contrast, 5 mm thick sections acquired from the diaphragms to the symphysis. 5 mm thick coronal and sagittal reformats were acquired. For radiation dose reducti on, the following was used: automated exposure control, adjustment of mA and/or kV according to stanley ent size. COMPARISON: 04/09/2016. FINDINGS: Image quality: Excellent. ABDOMEN: Lung bases: Lung bases are clear. Heart size is normal. Solid organs: Liver and spleen are normal in size and enhancement. Hypodense foci in the liver likel y benign cysts. Gallbladder is unremarkable Biliary system is non dilated. Pancreas enhances tonya lly. No adrenal nodules. Kidneys demonstrate normal size and enhancement, without hydronephrosis. B ilateral simple renal cysts. A few are too small to further characterize. Suspect right kidney inferi or pole nonobstructing calculus measuring 2 mm. Peritoneum and bowel: Bowel loops demonstrate normal wall thickness and caliber. A few colonic diver ticuli. No diverticulitis identified. Appendix is nondilated. No free fluid or air. Nodes and vessels: No retroperitoneal or mesenteric adenopathy by size criteria. Aorta and inferior vena cava are normal in size. Miscellaneous: Small fat-containing umbilical hernia. PELVIS: Genitourinary: Bladder is within normal limits. No bladder calculus. Miscellaneous: Question of fat-containing left internal hernia versus lipomatous hypertrophy. No anabela opathy. Bones: No suspicious bony lesions. No vertebral body compression fractures. IMPRESSION: 1. Diverticulosis. No diverticulitis. No free fluid. 2. No hydronephrosis. Suspect punctate nonobstructing right kidney stone. Reviewed by: Shasih Grayson MD on 06/29/2020 4:59 PM VICKIE Approved by: Shashi Grayson MD on 06/29/2020 4:59 PM AKDANYA Station ID: [id number]
[2020-06-29 18:52] LABS: BILIRUBIN,URINE NEGATIVE (NEGATIVE); GLUCOSE, URINE (UA) NEGATIVE (NEGATIVE); KETONES,URINE (UA) NEGATIVE (NEGATIVE); LEUKOCYTE ESTERASE, URINE NEGATIVE (NEGATIVE); NITRITE,URINE NEGATIVE (NEGATIVE); OCCULT BLOOD,URINE TRACE-INTA (NEGATIVE); PH,URINE 6.5 PH (5.0-7.5); PROTEIN,URINE NEGATIVE (NEGATIVE); UROBILINOGEN,URINE 0.2 (NORMAL) E.U./dL (NORMAL)
[2020-06-29 18:54] LABS: CLARITY,URINE CLEAR (CLEAR)
[2020-06-29 19:27] VITALS: BP 133/91
== END 2020-06-29 19:51 | disposition home or self-care (01) ==
LOC: ED 16:36
DX: E86.0 Dehydration (principal); R10.32 Left lower quadrant pain; F17.200 Nicotine dependence, unspecified, uncomplicated
CPT/HCPCS: 36415; 74177; 80053; 81003; 83690; 85025; 93005; 96360; 99284; Q9967; 81001; 87086

== ENCOUNTER 2020-07-06 07:05 | Outpatient (CLI) | payer MEDICAID ==
[2020-07-06 12:11] LABS: BASOPHILS # (AUTO) 0.1 10^3/uL (0.0-0.1); EOSINOPHILS # (AUTO) 0.4 10^3/uL (0.0-0.7); EOSINOPHILS % (AUTO) 5.9 %; HCT - HEMATOCRIT 48.7 % (42.0-52.0); HGB - HEMOGLOBIN 16.6 g/dL (14.0-18.0); LYMPHOCYTES # (AUTO) 2.3 10^3/uL (1.5-3.5); LYMPHOCYTES % (AUTO) 31.9 %; MEAN CORPUSCULAR HEMOGLOBIN 31.4 pg (27.0-31.0); MEAN CORPUSCULAR HGB CONC 34.1 g/dL (32.0-36.0); MEAN CORPUSCULAR VOLUME 92.1 fL (80.0-94.0); MEAN PLATELET VOLUME 9.9 fL (7.4-11.4); MONOCYTES # (AUTO) 0.4 10^3/uL (0.0-1.0); MONOCYTES % (AUTO) 5.5 %; NEUTROPHILS # (AUTO) 3.9 10^3/uL (1.5-6.6); NEUTROPHILS % (AUTO) 55.4 %; PLT - PLATELET COUNT 328 10^3/uL (130-450); RED BLOOD COUNT 5.29 10^6/uL (4.70-6.10); RED CELL DISTRIBUTION WIDTH 12.9 % (12.0-15.0); WHITE BLOOD COUNT 7.1 x10^3/uL (4.8-10.8)
[2020-07-06 12:41] LABS: ALBUMIN 5.1 g/dL (3.2-5.5); ALBUMIN/GLOBULIN RATIO 1.5 (1.0-2.2); ALKALINE PHOSPHATASE 58 IU/L (42-121); ALT ALANINE AMINOTRANSFERASE 29 IU/L (10-60); AST ASPARTATE AMINOTRANSFERASE 21 IU/L (10-42); BILIRUBIN,TOTAL 0.8 mg/dL (0.2-1.0); BUN - BLOOD UREA NITROGEN 20 mg/dL (6-20); CARBON DIOXIDE - CO2 28 mmol/L (21-32); CHLORIDE 105 mmol/L (101-111); CHOL/HDL RATIO 4.9 (<5.0); CHOLESTEROL 187 mg/dL; CREATININE 1.3 mg/dL (0.6-1.2); GFR - MDRD 57 (>89); GLUCOSE 95 mg/dL (70-100); HDL CHOLESTEROL 38 mg/dL; LDL CHOLESTEROL,CALCULATED 110 mg/dL; LDL/HDL RATIO 2.9 (<3.6); POTASSIUM 4.5 mmol/L (3.5-5.0); SODIUM 140 mmol/L (135-145); TOTAL PROTEIN 8.4 g/dL (6.7-8.2); TRIGLYCERIDES 197 mg/dL; VLDL CHOLESTEROL 39 mg/dL
[2020-07-06 12:46] LABS: THYROID STIMULATING HORMONE 5.72 uIU/mL (0.34-5.60)
[2020-07-06 13:33] LABS: FREE T4 (FREE THYROXINE) 0.66 ng/dL (0.58-1.64)
== END 2020-07-06 07:06 | disposition home or self-care (01) ==
LOC: LAB.N 07:05
PROVIDERS: ATTEND Family Medicine
DX: E66.9 Obesity, unspecified (principal); Z86.010 Personal history of colon polyps; R10.9 Unspecified abdominal pain; Z12.5 Encounter for screening for malignant neoplasm of prostate
CPT/HCPCS: 36415; 80050; 80061; 83721; 84153; 84439

== ENCOUNTER 2020-07-14 07:30 | Outpatient (CLI) | payer MEDICAID ==
[2020-07-14 12:16] LABS: CHOL/HDL RATIO 4.4 (<5.0); CHOLESTEROL 164 mg/dL; HDL CHOLESTEROL 37 mg/dL; LDL CHOLESTEROL,CALCULATED 92 mg/dL; LDL/HDL RATIO 2.5 (<3.6); TRIGLYCERIDES 175 mg/dL; VLDL CHOLESTEROL 35 mg/dL
[2020-07-14 12:30] LABS: ESTIMATED AVERAGE GLUCOSE 100 mg/dL (70-100); HEMOGLOBIN A1c% 5.1 % (4.27-6.07)
[2020-07-15 12:37] LABS: HEPATITIS C ANTIBODY NON-REACTIVE (NON-REACTIVE)
== END 2020-07-14 07:31 | disposition home or self-care (01) ==
LOC: LAB.N 07:30
PROVIDERS: ATTEND Family Medicine
DX: Z00.00 Encounter for general adult medical examination without abnormal findings (principal); Z11.59 Encounter for screening for other viral diseases; Z12.5 Encounter for screening for malignant neoplasm of prostate; R20.2 Paresthesia of skin
CPT/HCPCS: 36415; 80061; 82607; 83036; 83721; 84153; 86803

== ENCOUNTER 2020-07-14 07:43 | Outpatient (CLI) | payer MEDICAID ==
--- NOTE | 2020-07-14 15:59 | XRAY Report ---
PROCEDURE: Foot 3 View BILAT INDICATIONS: BILATERAL FOOT PX TECHNIQUE: 3 views of each foot were acquired. COMPARISON: None FINDINGS: Bones: No fractures or dislocations. No suspicious bony lesions. Soft tissues: No tibiotalar joint effusion. Achilles tendon appears normal. IMPRESSION: No acute fracture. No osseous lesion. If symptoms and/or clinical suspicion for pathology continue, f urther assessment with repeat plain films, or advanced imaging (e.g., CT, MRI, or bone scan) is recom mended for further assessment. Reviewed by: Miroslava Faustin MD on 07/14/2020 3:58 PM PDT Approved by: Miroslava Faustin MD on 07/14/2020 3:58 PM PDT Station ID: [id number]
== END 2020-07-14 07:44 | disposition home or self-care (01) ==
LOC: DI.N 07:43
PROVIDERS: ATTEND Family Medicine
DX: M79.672 Pain in left foot (principal); M79.671 Pain in right foot

== ENCOUNTER 2020-11-02 22:41 | Emergency (ER) | payer MEDICAID ==
--- NOTE | 2020-11-02 23:14 | ED Physician Documentation ---
PD HPI DYSPNEA - Stated complaint Stated Complaint: SOA, CONGESTION, LIGHT HEADED - Chief complaint Chief Complaint: General - History obtained from History obtained from: Patient - History of Present Illness Timing - onset: How many days ago (5) Timing - details: Gradual onset Pain level now: 0 Improved by: Rest Worsened by: Exertion Associated symptoms: Cough. No: Fever, Chest pain / discomfort, Palpitations Similar symptoms before: Has not had sx before Recently seen: Not recently seen - Additional information Additional information: c/o 5 days of productive cough with clear mucous, sinus and chest congestion, post nasal drip, intermittent lightheadedness and generalized weakness. denies fever. He is not COVID vaccinated Review of Systems Constitutional: reports: Fatigue. denies: Fever, Chills, Sweats Throat: denies: Sore throat Cardiac: reports: Reviewed and negative Respiratory: reports: Dyspnea, Cough GI: reports: Reviewed and negative PD PAST MEDICAL HISTORY - Past Medical History Past Medical History: Yes Cardiovascular: None Respiratory: None Endocrine/Autoimmune: None GI: GERD : Kidney stones HEENT: Chronic sinusitis Psych: Depression Musculoskeletal: Chronic back pain, Other Derm: None - Past Surgical History Past Surgical History: Yes General: Appendectomy, Colonoscopy Ortho: Spine surgery, Other - Present Medications Home Medications: Ambulatory Orders Medication Instructions Recorded Confirmed Albuterol Sulf [Ventolin Hfa 1 - 2 puffs INH Q4HR PRN #1 inhaler 11/03/20 Inhaler] predniSONE [Deltasone] 40 mg PO DAILY 4 Days #8 tablet 11/03/20 - Allergies Allergies/Adverse Reactions: Allergies Allergy/AdvReac Type Severity Reaction Status Date / Time No Known Drug Allergies Allergy Verified 11/02/20 22:51 - Social History Does the pt smoke?: Yes Smoking Status: Current every day smoker Does the pt drink ETOH?: Yes Does the pt have substance abuse?: Yes - Immunizations Immunizations are current?: Yes - POLST Patient has POLST: No PD ED PE NORMAL - Vitals Vital signs reviewed: Yes - General General: Alert and oriented X 3, No acute distress, Well developed/nourished - HEENT HEENT: Moist mucous membranes - Neck Neck: Supple, no meningeal sign - Cardiac Cardiac: RRR, No murmur, No gallop, No rub - Respiratory Respiratory: No respiratory distress - Abdomen Abdomen: Soft, Non tender - Derm Derm: Normal color, Warm and dry - Extremities Extremities: No edema PD ED PE EXPANDED - Respiratory Respiratory: Wheezing (bilateral end-expiratory) Results - Vitals Vitals: Vital Signs - 24 hr 11/02/20 11/02/20 11/02/20 22:51 22:59 23:37 Temperature 36.4 C L 36.5 C Heart Rate 60 60 60 Respiratory 16 16 16 Rate Blood Pressure 108/68 108/68 O2 Saturation 98 98 11/03/20 01:14 Temperature 36.6 C Heart Rate 61 Respiratory 17 Rate Blood Pressure 110/70 O2 Saturation 99 Oxygen O2 Source Room air - Labs Labs: Laboratory Tests 11/02/20 23:30 Nasal Adenovirus (PCR) NOT DETECTED Nasal B. parapertussis DNA (PCR) NOT DETECTED Nasal Coronavir 229E PCR NOT DETECTED Nasal Coronavir HKU1 PCR NOT DETECTED Nasal Coronavir NL63 PCR NOT DETECTED Nasal Coronavir OC43 PCR NOT DETECTED Nasal Enterovir/Rhinovir PCR DETECTED A Nasal Influenza B PCR NOT DETECTED Nasal Influenza A PCR NOT DETECTED Nasal Parainfluen 1 PCR NOT DETECTED Nasal Parainfluen 2 PCR NOT DETECTED Nasal Parainfluen 3 PCR NOT DETECTED Nasal Parainfluen 4 PCR NOT DETECTED Nasal RSV (PCR) NOT DETECTED Nasal B.pertussis DNA PCR NOT DETECTED Nasal C.pneumoniae (PCR) NOT DETECTED Ady Human Metapneumo PCR NOT DETECTED Nasal M.pneumoniae (PCR) NOT DETECTED Nasal SARS-CoV-2 (PCR) NOT DETECTED - Rads (name of study) chest xray Radiology: Prelim report reviewed, See rad report PD MEDICAL DECISION MAKING - ED course Complexity details: reviewed results, re-evaluated patient, considered differential, d/w patient Departure - Departure Disposition: 01 Home, Self Care Clinical Impression: Bronchitis with bronchospasm Condition: Good Instructions: ED Bronchitis Asthmatic Follow-Up: Fabby Fernandes DO [Primary Care Provider] - Prescriptions: Albuterol Sulf [Ventolin Hfa Inhaler] 1 - 2 puffs INH Q4HR PRN #1 inhaler PRN Reason: Shortness Of Air/Wheezing predniSONE [Deltasone] 40 mg PO DAILY 4 Days #8 tablet Forms: Activity restrictions Discharge Date/Time: 11/03/20 01:14
[2020-11-02] MEDS: IPRATROPIUM/ALBUTEROL 3 ML NEB INH STA (23:36)
[2020-11-03 00:26] LABS: CORONAVIRUS 229E-RESP PCR NOT DETECTED; CORONAVIRUS HKU1-RESP PCR NOT DETECTED; CORONAVIRUS NL63-RESP PCR NOT DETECTED; CORONAVIRUS OC43-RESP PCR NOT DETECTED; HUMAN METAPNEUMOVIRUS NOT DETECTED; SARS-CoV-2 -RESP PCR PANEL NOT DETECTED
[2020-11-03 00:27] LABS: B. PARAPERTUSSIS- RESP PCR PAN NOT DETECTED; B. PERTUSSIS- RESP PCR PANEL NOT DETECTED; C. PNEUMONIAE- RESP PCR PANEL NOT DETECTED; INFLUENZA A- RESP PCR PANEL NOT DETECTED; INFLUENZA B - RESP PCR PANEL NOT DETECTED; M. PNEUMONIAE- RESP PCR PANEL NOT DETECTED; PARAINFLUENZA VIRUS 1 NOT DETECTED; PARAINFLUENZA VIRUS 2 NOT DETECTED; PARAINFLUENZA VIRUS 3 NOT DETECTED; PARAINFLUENZA VIRUS 4 NOT DETECTED; RHINOVIRUS/ENTEROVIRUS DETECTED; RSV- RESP PCR PANEL NOT DETECTED
[2020-11-03] MEDS: CHERRY SYRUP 10 ML UDC PO ONE (01:09)
[2020-11-03] MEDS: DEXAMETHASONE 10 MG/ML VIAL PO STA (01:09)
[2020-11-03 01:16] VITALS: BP 110/70
--- NOTE | 2020-11-03 07:36 | XRAY Report ---
PROCEDURE: Chest 2 View X-Ray INDICATIONS: cough, dyspnea TECHNIQUE: 2 view(s) of the chest. COMPARISON: 11/09/2016. FINDINGS: Surgical changes and devices: None. Lungs and pleura: No pleural effusions or pneumothorax. Lungs are clear. Mediastinum: Mediastinal contours are normal. Heart size is normal. Bones and chest wall: No suspicious bony abnormalities. Soft tissues appear unremarkable. IMPRESSION: Chest without acute cardiopulmonary abnormalities. No focal airspace disease. No significant discrepancy with initial interpretation by overnight radiologist. Reviewed by: Marcin Eid MD on 11/03/2020 7:35 AM PDT Approved by: Marcin Eid MD on 11/03/2020 7:35 AM PDT Station ID: [id number]
== END 2020-11-03 01:14 | disposition home or self-care (01) ==
LOC: ED 22:41
DX: J20.9 Acute bronchitis, unspecified (principal); F17.200 Nicotine dependence, unspecified, uncomplicated; Z20.822 Contact with and (suspected) exposure to COVID-19
CPT/HCPCS: 0202U; 71046; 94640; 99284; A9270

== ENCOUNTER 2021-01-27 07:12 | Outpatient (CLI) | payer OTHER ==
--- NOTE | 2021-01-27 09:33 | MRI Report ---
PROCEDURE: Shoulder RT W/O INDICATIONS: RIGHT SHOULDER STRAIN TECHNIQUE: Noncontrast oblique coronal T2 fast spin echo with fat saturation, oblique sagittal T1 spin echo and T2 fast spin echo with fat saturation, axial T1 spin echo and T2 fast spin echo with fat saturation t hrough the shoulder. COMPARISON: July 02, 2020. Findings: Supraspinatus: Mild to moderate tendinopathy with small partial articular surface tear. Infraspinatus: Mild to moderate tendinopathy with small partial articular surface tear. Subscapularis: Mild tendinopathy without evidence of tear. Teres minor: No evidence of tear. Labrum: Blunting of the anterior labrum with adjacent fluid (series 501, image 20), concerning for sm all tear. Biceps tendon: No evidence of subluxation or tear. Acromioclavicular joint: Normal alignment. Mild arthrosis Muscle: No significant atrophy. Bones: No significant abnormality. Small focus of fibrocystic change in the humeral head. Miscellaneous: No glenohumeral joint effusion. Trace fluid in the subacromial/subdeltoid bursa. No intra-articular bodies. Intact coracoclavicular ligament. IMPRESSION: 1. [id number] supraspinatus and infraspinatus tendinopathy with small partial articular surface tears. 2. Mild subscapularis tendinopathy. 3. Blunting of the anterior labrum as detailed above, concerning for small tear. 4. Mild subacromial/subdeltoid bursitis. Reviewed by: Cedric Meraz MD on 01/27/2021 9:32 AM PDT Approved by: Cedric Meraz MD on 01/27/2021 9:32 AM PDT Station ID: [id number]
== END 2021-01-27 07:13 | disposition home or self-care (01) ==
LOC: DI 07:12
PROVIDERS: ATTEND Orthopaedic Surgery
DX: M75.111 Incomplete rotator cuff tear or rupture of right shoulder, not specified as traumatic (principal); M75.81 Other shoulder lesions, right shoulder; M75.51 Bursitis of right shoulder

== ENCOUNTER 2021-10-04 09:51 | Outpatient (CLI) | payer MEDICAID ==
[2021-10-04 12:08] LABS: BASOPHILS # (AUTO) 0.1 10^3/uL (0.0-0.1); BASOPHILS % (AUTO) 1.1 %; EOSINOPHILS # (AUTO) 0.5 10^3/uL (0.0-0.7); HCT - HEMATOCRIT 44.5 % (42.0-52.0); HGB - HEMOGLOBIN 15.6 g/dL (14.0-18.0); LYMPHOCYTES # (AUTO) 2.2 10^3/uL (1.5-3.5); LYMPHOCYTES % (AUTO) 33.2 %; MEAN CORPUSCULAR HEMOGLOBIN 32.6 pg (27.0-31.0); MEAN CORPUSCULAR HGB CONC 35.1 g/dL (32.0-36.0); MEAN CORPUSCULAR VOLUME 92.9 fL (80.0-94.0); MEAN PLATELET VOLUME 9.5 fL (7.4-11.4); MONOCYTES # (AUTO) 0.5 10^3/uL (0.0-1.0); MONOCYTES % (AUTO) 7.4 %; NEUTROPHILS # (AUTO) 3.3 10^3/uL (1.5-6.6); NEUTROPHILS % (AUTO) 50.1 %; PLT - PLATELET COUNT 287 10^3/uL (130-450); RED BLOOD COUNT 4.79 10^6/uL (4.70-6.10); RED CELL DISTRIBUTION WIDTH 12.6 % (12.0-15.0); WHITE BLOOD COUNT 6.5 x10^3/uL (4.8-10.8)
[2021-10-04 12:20] LABS: ALBUMIN 4.3 g/dL (3.2-5.5); ALBUMIN/GLOBULIN RATIO 1.3 (1.0-2.2); ALKALINE PHOSPHATASE 60 IU/L (42-121); ALT ALANINE AMINOTRANSFERASE 49 IU/L (10-60); AST ASPARTATE AMINOTRANSFERASE 28 IU/L (10-42); BILIRUBIN,TOTAL 0.7 mg/dL (0.2-1.0); BUN - BLOOD UREA NITROGEN 26 mg/dL (6-20); CALCIUM 9.7 mg/dL (8.5-10.3); CARBON DIOXIDE - CO2 27 mmol/L (21-32); CHLORIDE 106 mmol/L (101-111); CHOL/HDL RATIO 5.4 (<5.0); CHOLESTEROL 204 mg/dL; CREATININE 1.2 mg/dL (0.6-1.2); GFR - MDRD 62 (>89); GLUCOSE 96 mg/dL (70-100); HDL CHOLESTEROL 38 mg/dL; LDL CHOLESTEROL,CALCULATED 127 mg/dL; LDL/HDL RATIO 3.3 (<3.6); POTASSIUM 4.3 mmol/L (3.5-5.0); SODIUM 140 mmol/L (135-145); THYROID STIMULATING HORMONE 4.27 uIU/mL (0.34-5.60); TOTAL PROTEIN 7.7 g/dL (6.7-8.2); TRIGLYCERIDES 197 mg/dL; VLDL CHOLESTEROL 39 mg/dL
== END 2021-10-04 09:52 | disposition home or self-care (01) ==
LOC: LAB.N 09:51
PROVIDERS: ATTEND Nurse Practitioner Family
DX: Z00.01 Encounter for general adult medical examination with abnormal findings (principal); E66.9 Obesity, unspecified; R39.11 Hesitancy of micturition; E55.9 Vitamin D deficiency, unspecified
CPT/HCPCS: 36415; 80050; 80061; 81001; 81003; 82306; 83721; 84153; 87086

== ENCOUNTER 2021-10-05 08:00 | Outpatient (CLI) | payer MEDICAID ==
[2021-10-05 11:43] LABS: BILIRUBIN,URINE NEGATIVE (NEGATIVE); GLUCOSE, URINE (UA) NEGATIVE (NEGATIVE); KETONES,URINE (UA) NEGATIVE (NEGATIVE); LEUKOCYTE ESTERASE, URINE NEGATIVE (NEGATIVE); NITRITE,URINE NEGATIVE (NEGATIVE); OCCULT BLOOD,URINE TRACE-INTA (NEGATIVE); PROTEIN,URINE NEGATIVE (NEGATIVE); UROBILINOGEN,URINE 0.2 (NORMAL) E.U./dL (NORMAL)
[2021-10-05 11:51] LABS: CLARITY,URINE CLEAR (CLEAR)
== END 2021-10-05 23:59 | disposition home or self-care (01) ==
LOC: LAB.N 08:00
PROVIDERS: ATTEND Nurse Practitioner Family
DX: Z00.01 Encounter for general adult medical examination with abnormal findings (principal); R39.11 Hesitancy of micturition
CPT/HCPCS: 81001; 81003; 87086

== ENCOUNTER 2021-10-14 12:19 | Outpatient (CLI) | payer MEDICAID, OTHER ==
--- NOTE | 2021-10-14 17:50 | XRAY Report ---
PROCEDURE: Abdomen 1 View X-Ray INDICATIONS: FLANK PAIN,RT TECHNIQUE: One view of the abdomen acquired. COMPARISON: None FINDINGS: Surgical changes and devices: None. Bowel: Bowel gas pattern is normal. Soft tissues: No suspicious abdominal calcifications. Visualized solid organ contours appear normal in size. Bones: No suspicious bony lesions. IMPRESSION: Unremarkable abdominal radiograph. No radiographic evidence of renal calculi Reviewed by: Hector Diaz MD on 10/14/2021 4:48 PM AKDT Approved by: Hector Diaz MD on 10/14/2021 4:48 PM AKDT Station ID: [id number]
== END 2021-10-14 12:20 | disposition home or self-care (01) ==
LOC: DI 12:19
PROVIDERS: ATTEND Nurse Practitioner Family
DX: R10.9 Unspecified abdominal pain (principal)

== ENCOUNTER 2021-12-21 09:09 | Outpatient (CLI) | payer MEDICAID ==
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
[2021-12-21 09:56] VITALS: BP 128/80
== END 2021-12-21 09:10 | disposition home or self-care (01) ==
LOC: SC 09:09
PROVIDERS: ATTEND Nurse Practitioner Family
DX: G47.10 Hypersomnia, unspecified (principal); R53.83 Other fatigue; G47.8 Other sleep disorders; R06.83 Snoring; R06.81 Apnea, not elsewhere classified; F32.A Depression, unspecified; E66.9 Obesity, unspecified; Z68.35 Body mass index [BMI] 35.0-35.9, adult
CPT/HCPCS: 99203; 99212

== ENCOUNTER 2022-01-01 19:34 | Outpatient (CLI) | payer MEDICAID | END 2022-01-01 19:35 | disposition home or self-care (01) | LOC: SC 19:34 | PROVIDERS: ATTEND Nurse Practitioner Family | DX: G47.33 Obstructive sleep apnea (adult) (pediatric) (principal); G47.61 Periodic limb movement disorder | CPT/HCPCS: 95810 ==

== ENCOUNTER 2022-01-11 08:52 | Outpatient (CLI) | payer MEDICAID ==
[2022-01-11 09:24] VITALS: BP 106/70
--- NOTE | 2022-01-11 09:24 | SLEEP CARE CONSULTATION ---
Information from patient questionnaire entered by Marisa Sexton. I have reviewed and concur with the information entered by Marisa Sexton. This document represents the service I personally performed and the decisions made by , Laura Ramirez ARNP. History of Present Illness Service Date and Time: 01/11/2022 0852 Initial [place] Sleepiness Scale score: 18 (12/17/21) Current [place] Sleepiness Scale score: 13 (01/11/22) Additional HPI information: JORI DEMARCO returns for follow up and results of the recently performed polysomnography. I explained the pathophysiology behind obstructive sleep apnea. We then spent quite a bit of time discussing different treatment options. For mild obstructive sleep apnea, surgery and oral appliance are alternatives to nasal CPAP therapy but in moderate or severe cases, nasal CPAP is the most effective and reliable treatment. Because apnea is primarily in supine position, then positional management therapy could be effective. Methods discussed such as positioning with pillows to prevent supine sleep. I reviewed the impact of weight changes on sleep apnea and strongly recommended losing weight. After some discussion, the patient opted to go with the nasal CPAP therapy. Nasal autoCPAP set at 4-15 cmH20 will be ordered with rationale explained. A manual titration study will be ordered if unable to find optimal pressure with office adjustments. I explained how CPAP machine works and what to expect when using the machine. Using CPAP every night in order to get used to it was emphasized. Patient advised to put CPAP mask on before getting into bed so as not to fall asleep without CPAP. To assist acclimation to CPAP use, it could also be used for a short time during day while reading or watching TV. The patient was instructed to call the CPAP supplier to discuss any mechanical problem that may occur. If the mask given is uncomfortable or is difficult to keep on through the night even with adjustment, contact the CPAP supplier as many will replace with another mask style if notified before 30 days. If snoring or perceives is not getting enough air or too much air from the machine, notify this office. Patient does not drink alcohol. Patient was cautioned about risks of drowsy driving until sleepiness symptoms resolve. Patient denies drowsy driving. Sleep Study - Results Type of Sleep Study: Polysomnography (DONE 01/01/22) Prior sleep studies: No Polysomnography/Home Sleep Study results: IMPRESSION: The quality of the study is good. The patient had slightly reduced sleep efficiency due to frequent awakenings throughout the night. The sleep architecture was abnormal for sleep fragmentation and reduced amount of time spent in REM and slow wave sleep (N3). Respiratory monitoring showed severe obstructive sleep apneahypopnea (AHI = 44.5) associated with frequent arousals, oxyhemoglobin desaturation and moderate hypoxia (vickie oxygen saturation of 79%). The respiratory events occurred more frequently during supine sleep (supine AHI = 86.4; non-supine = 28.38). Snore was moderate in intensity. There was moderate periodic leg movement of sleep not contributing to the sleep fragmentation. Cardiac rhythm was normal sinus rhythm without significant arrhythmia. No abnormal behavior (parasomnia) observed during the night. Allergies and Home Medications Home medication list reviewed: Yes (no changes) Allergy and home medication list: Allergies No Known Drug Allergies Allergy (Verified 11/02/20 22:51) Review of Systems Review of systems same as previous: Yes (no changes) Physical Exam Vital signs obtained and entered by: REA DAVIS Blood Pressure: 106/70 (left arm ) Cuff size: regular Heart Rate: 72 O2 Saturation: 96 Height: 5 ft 11 in Weight: 253 lb Body Mass Index: 35.2 BMI Classification: Obese Impression and Plan 1. Obstructive Sleep Apnea-Hypopnea Syndrome, severe, with lowest oxygen saturation of 79%. Obviously this is the cause of the patients symptoms of unrefreshed sleep, and excessive daytime sleepiness. Positive pressure therapy could benefit anxiety, depression, mood disorder (PTSD) and attention deficit. As mentioned above, the patient will be started on nasal autoCPAP therapy with pressure set at 4-15 cmH2O. Compliance guidelines also reviewed. A copy of compliance guidelines will be given for reference at check out. Because the apnea is more severe supine, I instructed to avoid sleeping supine using pillow positioning until able to start CPAP use. 2. Hypoxemia, moderate, with a vickie oxygen saturation of 79% and 22.7 minutes spent under 90%. His baseline oxygen saturation was normal with an average o xygen saturation of 92%. 3. Periodic limb movement, moderate, that did not fragment patients sleep. Periodic limb movement of sleep (PLMS) is characterized by episodes of repetitive limb movements that occur during sleep and usually involve the lower limbs. Caffeine can aggravate PLMS and should be avoided. Sleep hygiene methods can also improve sleep as well as lifestyle changes such as regular exercise. Patient was advised that no treatment is needed at this time. If symptoms increase, then further evaluation is indicated. * Nasal auto CPAP therapy, pressure at 4-15 cm H2O. * Attempt to lose weight. * Avoid alcohol consumption near bedtime. * Avoid supine sleep until using CPAP. * The patient is again cautioned about driving until sleepiness completely resolves. * Return one month after CPAP obtained. I will assess response to therapy and compliance at that time. Counseling Topics: Weight loss health impact Visit Type: In Office Time Spent with Patient (minutes): 24 Provider Statement: I spent 100% of the Face to Face Visit with the patient with greater than 50% spent counseling the patient and coordination of care.
== END 2022-01-11 08:53 | disposition home or self-care (01) ==
LOC: SC 08:52
PROVIDERS: ATTEND Nurse Practitioner Family
DX: G47.33 Obstructive sleep apnea (adult) (pediatric) (principal); R09.02 Hypoxemia; G47.61 Periodic limb movement disorder; E66.9 Obesity, unspecified; Z68.35 Body mass index [BMI] 35.0-35.9, adult
CPT/HCPCS: 99212; 99213

== ENCOUNTER 2022-04-22 07:17 | Outpatient (CLI) | payer MEDICAID ==
[2022-04-22 12:15] LABS: ALBUMIN 4.7 g/dL (3.2-5.5); ALBUMIN/GLOBULIN RATIO 1.3 (1.0-2.2); BILIRUBIN,TOTAL 0.8 mg/dL (0.2-1.0); CALCIUM 9.7 mg/dL (8.5-10.3); CREATININE 1.3 mg/dL (0.6-1.2); POTASSIUM 4.2 mmol/L (3.5-5.0); TOTAL PROTEIN 8.3 g/dL (6.7-8.2)
[2022-04-22 12:16] LABS: ESTIMATED AVERAGE GLUCOSE 97 mg/dL (70-100)
== END 2022-04-22 07:18 | disposition home or self-care (01) ==
LOC: LAB.N 07:17
PROVIDERS: ATTEND Nurse Practitioner Family
DX: E66.9 Obesity, unspecified (principal)
CPT/HCPCS: 36415; 80053; 83036

== ENCOUNTER 2023-02-21 11:50 | Outpatient (CLI) | payer MEDICAID ==
[2023-02-21 17:59] LABS: BASOPHILS # (AUTO) 0.1 10^3/uL (0.0-0.1); BASOPHILS % (AUTO) 0.9 %; EOSINOPHILS # (AUTO) 0.5 10^3/uL (0.0-0.7); EOSINOPHILS % (AUTO) 5.9 %; HCT - HEMATOCRIT 44.4 % (42.0-52.0); HGB - HEMOGLOBIN 15.3 g/dL (14.0-18.0); LYMPHOCYTES # (AUTO) 1.9 10^3/uL (1.5-3.5); LYMPHOCYTES % (AUTO) 24.2 %; MEAN CORPUSCULAR HEMOGLOBIN 32.7 pg (27.0-31.0); MEAN CORPUSCULAR HGB CONC 34.5 g/dL (32.0-36.0); MEAN CORPUSCULAR VOLUME 94.9 fL (80.0-94.0); MEAN PLATELET VOLUME 10.2 fL (7.4-11.4); MONOCYTES # (AUTO) 0.4 10^3/uL (0.0-1.0); NEUTROPHILS # (AUTO) 5.1 10^3/uL (1.5-6.6); NEUTROPHILS % (AUTO) 63.7 %; PLT - PLATELET COUNT 294 10^3/uL (130-450); RED BLOOD COUNT 4.68 10^6/uL (4.70-6.10); RED CELL DISTRIBUTION WIDTH 13.7 % (12.0-15.0)
[2023-02-21 18:11] LABS: CHOLESTEROL 201 mg/dL; HDL CHOLESTEROL 40 mg/dL; LDL CHOLESTEROL,CALCULATED 132 mg/dL; LDL/HDL RATIO 3.3 (<3.6); TRIGLYCERIDES 143 mg/dL (48-352); VLDL CHOLESTEROL 29 mg/dL
== END 2023-02-21 11:51 | disposition home or self-care (01) ==
LOC: LAB.N 11:50
PROVIDERS: ATTEND Nurse Practitioner Family
DX: R12 Heartburn (principal); R31.9 Hematuria, unspecified; D12.6 Benign neoplasm of colon, unspecified; Z13.220 Encounter for screening for lipoid disorders; Z12.5 Encounter for screening for malignant neoplasm of prostate
CPT/HCPCS: 36415; 80061; 83721; 84153; 85025

== ENCOUNTER 2023-05-12 11:03 | Emergency (ER) | payer OTHER, MEDICAID ==
[2023-05-12] MEDS ORDERED: KETOROLAC 60 MG/2 ML VIAL IM STA (11:52)
--- NOTE | 2023-05-12 11:54 | ED Physician Documentation ---
PD HPI UPPER EXT INJURY - Stated complaint Stated Complaint: RT SHOULDER PX - Chief complaint Chief Complaint: Ext Problem - History obtained from History obtained from: Patient - Additonal information Additional information: 57-year-old gentleman injured his shoulder about 2 and half years ago. He has had trouble with it ever since. He was seeing our orthopedic clinic and had an MRI done in January 2021 demonstrating supraspinatus and infraspinatus tendinopathy with small partial articular surface tears, mild subscapularis tendinopathy, blunting of the anterior labrum, and mild subacromial/subdeltoid bursitis. Pain became worse without specific injury 3 weeks ago, an exacerbation of the same issue causing him to lose sleep. He took his brothers muscle relaxer which was modestly helpful. He has been taking Tylenol and ibuprofen in addition to that for pain. PD PAST MEDICAL HISTORY - Past Medical History Past Medical History: Yes Cardiovascular: None Respiratory: None Endocrine/Autoimmune: None GI: GERD : Kidney stones HEENT: Chronic sinusitis Psych: Depression Musculoskeletal: Chronic back pain, Other Derm: None - Past Surgical History Past Surgical History: Yes General: Appendectomy, Colonoscopy Ortho: Spine surgery, Other - Present Medications Home Medications: Ambulatory Orders Medication Instructions Recorded Confirmed Albuterol Sulf [Ventolin Hfa 1 - 2 puffs INH Q4HR PRN #1 inhaler 11/03/20 12/21/21 Inhaler] Dicyclomine [Bentyl] 1 - 2 tab PO QID PRN #10 cap 01/12/23 Loperamide [Imodium] 2 mg PO QID PRN #10 cap 01/12/23 Ondansetron Odt [Zofran] 4 mg TL Q6H PRN #10 tablet 01/12/23 Cyclobenzaprine [Flexeril] 10 mg PO TID PRN #20 tablet 05/12/23 HYDROcod/ACETAM 5/325 [[place] 5/325] 1 - 2 tab PO Q6H PRN #20 tablet 05/12/23 - Allergies Allergies/Adverse Reactions: Allergies Allergy/AdvReac Type Severity Reaction Status Date / Time No Known Drug Allergies Allergy Verified 05/12/23 11:16 - Social History Does the pt smoke?: No Smoking Status: Never smoker Does the pt drink ETOH?: Yes Does the pt have substance abuse?: Yes Substance Use and Type: Marijuana - Immunizations Immunizations are current?: Yes - POLST Patient has POLST: No PD ED PE NORMAL - Vitals Vital signs reviewed: Yes - General General: Alert and oriented X 3, No acute distress - Extremities Extremities: Other (Right shoulder is minimally tender over the glenohumeral joint. He is unable to abduct it more than a few degrees actively but does much better passively. No warmth or redness. External rotation is fairly painless but internal rotation does hurt him a lot.) - Neuro Neuro: Alert and oriented X 3, No motor deficit, No sensory deficit, Normal speech Results - Vitals Vitals: Vital Signs - 24 hr 05/12/23 11:12 Temperature 36.5 C Heart Rate 65 Respiratory 18 Rate Blood Pressure 126/95 H O2 Saturation 96 Oxygen O2 Source Room air PD Medical Decision Making - ED course ED course: 57-year-old gentleman with an exacerbation of right shoulder pain related to above findings on previous MRI. No evidence of medical emergency. No evidence of infection or recent trauma. Departure - Departure Disposition: 01 Home, Self Care Clinical Impression: Rotator cuff arthropathy of right shoulder Condition: Good Record reviewed to determine appropriate education?: Yes Instructions: ED Tendinitis Rotator Cuff Prescriptions: Cyclobenzaprine [Flexeril] 10 mg PO TID PRN #20 tablet PRN Reason: Spasms HYDROcod/ACETAM 5/325 [[place] 5/325] 1 - 2 tab PO Q6H PRN #20 tablet PRN Reason: Pain Comments: As discussed, this is acting like an exacerbation of a rotator cuff issue. Follow-up with Dr Vergara as scheduled. I sent your prescriptions electronically to [facility] in [place]. Call your doctor to arrange a follow-up appointment, make the next available appointment. In the interim, return anytime if worse or if new symptoms develop. Forms: PCP List
[2023-05-12 12:16] VITALS: BP 111/87; O2SAT 98
== END 2023-05-12 12:15 | disposition home or self-care (01) ==
LOC: ED 11:03
DX: M75.111 Incomplete rotator cuff tear or rupture of right shoulder, not specified as traumatic (principal); M75.51 Bursitis of right shoulder; M75.81 Other shoulder lesions, right shoulder
CPT/HCPCS: 96372; 99283; 99284

== ENCOUNTER 2023-05-21 09:07 | Emergency (ER) | payer OTHER, MEDICAID ==
[2023-05-21 09:26] VITALS: BP 121/77; O2SAT 100
--- NOTE | 2023-05-21 10:04 | ED Physician Documentation ---
PD HPI UPPER EXT INJURY - Stated complaint Stated Complaint: RT SHOULDER INJ - Chief complaint Chief Complaint: Ext Problem - History obtained from History obtained from: Patient - Additonal information Additional information: Patient is a 57-year-old male presenting for evaluation of right shoulder pain. 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 He states that the pain has been worse over the last several weeks. He was recently seen in this emergency department for similar symptoms at the end of April and given a prescription for muscle relaxers and narcotic pain medication which she states helped some but he if he is running low. He does have an appointment with Dr. Vergara on Monday. He denies any recent injuries. He believes he slept wrong which has caused recent increase in pain. Has had a prior MRI in 2020 showing IMPRESSION: 1. Tydl-nl-ffmekqnx supraspinatus and infraspinatus tendinopathy with small partial articular surface tears. 2. Mild subscapularis tendinopathy. 3. Blunting of the anterior labrum as detailed above, concerning for small tear. 4. Mild subacromial/subdeltoid bursitis. Review of Systems Constitutional: denies: Fever Cardiac: denies: Chest pain / pressure Respiratory: denies: Dyspnea GI: denies: Abdominal Pain Musculoskeletal: reports: Joint pain PD PAST MEDICAL HISTORY - Past Medical History Past Medical History: Yes Cardiovascular: None Respiratory: None Endocrine/Autoimmune: None GI: GERD : Kidney stones HEENT: Chronic sinusitis Psych: Depression Musculoskeletal: Chronic back pain, Other Derm: None - Past Surgical History Past Surgical History: Yes General: Appendectomy, Colonoscopy Ortho: Spine surgery, Other - Present Medications Home Medications: Ambulatory Orders Medication Instructions Recorded Confirmed Albuterol Sulf [Ventolin Hfa 1 - 2 puffs INH Q4HR PRN #1 inhaler 11/03/20 12/21/21 Inhaler] Dicyclomine [Bentyl] 1 - 2 tab PO QID PRN #10 cap 01/12/23 Loperamide [Imodium] 2 mg PO QID PRN #10 cap 01/12/23 Ondansetron Odt [Zofran] 4 mg TL Q6H PRN #10 tablet 01/12/23 Cyclobenzaprine [Flexeril] 10 mg PO TID PRN #20 tablet 01/26/24 02/04/24 HYDROcod/ACETAM 5/325 [[place] 5/325] 1 - 2 tab PO Q6H PRN #20 tablet 05/12/23 05/21/23 Cyclobenzaprine [Flexeril] 10 mg PO TID PRN #20 tablet 05/21/23 Oxycodone HCl/Acetaminophen 1 each PO Q6H PRN #10 tablet 05/21/23 [Percocet 5-325 mg Tablet] - Allergies Allergies/Adverse Reactions: Allergies Allergy/AdvReac Type Severity Reaction Status Date / Time No Known Drug Allergies Allergy Verified 05/21/23 09:18 - Social History Does the pt smoke?: Yes Smoking Status: Current every day smoker Does the pt drink ETOH?: Yes Does the pt have substance abuse?: Yes - Immunizations Immunizations are current?: Yes - POLST Patient has POLST: No PD ED PE NORMAL - General General: Alert and oriented X 3, No acute distress, Well developed/nourished - HEENT HEENT: Atraumatic, Moist mucous membranes, Pharynx benign - Neck Neck: Supple, no meningeal sign - Cardiac Cardiac: RRR, Strong equal pulses - Respiratory Respiratory: No respiratory distress, Clear bilaterally - Derm Derm: Warm and dry - Extremities Extremities: No deformity, No edema, Other (Right shoulder tenderness with no visible deformity, no erythema or swelling, pain with abduction past 30 degrees but does allow for passive range of motion past 90 degrees, able to touch left shoulder with right hand; Pain with internal rotation; Sensation grossly intact) - Neuro Neuro: Alert and oriented X 3, No motor deficit, No sensory deficit, Normal speech Results - Vitals Vitals: Vital Signs - 24 hr 05/21/23 09:14 Temperature 36.5 C Heart Rate 79 Respiratory 18 Rate Blood Pressure 121/77 O2 Saturation 100 Oxygen O2 Source Room air PD Medical Decision Making - ED course ED course: Patient is a 57-year-old male presenting for right shoulder pain. Reports having an injury several years ago related to an L&I claim. Has been seen here recently with increased pain over the past several weeks and has an upcoming appointment with Dr. Vergara. No recent trauma. Neurovascularly intact. Patient requesting additional pain medication and muscle relaxers.No signs of joint infection.Patient has an upcoming appointment in 2 days and I did review that I will prescribe him a short amount of a medications to see if this helps with his symptoms along with lidocaine patches and will offer a sling to use for comfort. However he understands that further prescription should come from his orthopedist or primary care provider. Patient counseled on concerning symptoms to return for. Departure - Departure Disposition: Home, Self Care Clinical Impression: Right shoulder pain, Rotator cuff arthropathy of right shoulder Condition: Stable Instructions: ED Tendinitis Rotator Cuff Follow-Up: Bob Vergara MD [Provider Admit Priv/Credential] - Prescriptions: Cyclobenzaprine [Flexeril] 10 mg PO TID PRN #20 tablet PRN Reason: Spasms Oxycodone HCl/Acetaminophen [Percocet 5-325 mg Tablet] 1 each PO Q6H PRN #10 tablet PRN Reason: pain Comments: I have sent a small amount of narcotic pain medication as well as a muscle relaxer to [facility] in [place]. Please keep your follow-up appointment with Dr. Vergara on Monday. Use the sling as needed for comfort. But I would also recommend removing the sling several times a day to range of motion your shoulder. I am prescribing a short course of narcotic pain medication for you. These are potentially dangerous and addictive medications that should be used carefully. These medications may constipate you. Take an pvxb-bin-cglmpxh stool softener (docusate) twice daily with plenty of water while taking these medications. If you go 24 hours without a bowel movement, take qsur-xat-uwyntpn miralax, per package instructions. Do not drink or drive while taking these medications. If you received narcotic or sedating medications while in the emergency department, do not drive for 24 hours. Store this medication in a safe, secure place and out of reach of children. It is a violation of federal law to give or sell this medication to another person or to use in a manner other than prescribed. The ED will not refill narcotic prescriptions, including prescriptions lost or stolen. To dispose of unwanted medications: 1. [facility] [address] [facility] in [place] has a medication drop box. They accept prescription medications (in pill form) Monday through Monday 9:00 a.m. to 5:00 p.m. 2. [facility] accepts prescription medications (in pill form only) for disposal year round. Call for more information. 3. Contact the [facility] for the next [facility] sponsored prescription drug collection event. , [phone], or [phone]; Note that many narcotic pain relievers also contain Tylenol/acetaminophen. Please ensure that your total dose of acetaminophen from all sources does not exceed 3 g (3000 mg) per day. Forms: PCP List Discharge Date/Time: 05/21/23 10:23
[2023-05-21] MEDS: oxyCODONE 5 MG TABLET PO STA (10:10)
[2023-05-21] MEDS: KETOROLAC 60 MG/2 ML VIAL IM STA (10:10)
[2023-05-21] MEDS: LIDOCAINE PATCH 4% TOP STA (10:11)
== END 2023-05-21 10:23 | disposition home or self-care (01) ==
LOC: ED 09:07
DX: M12.811 Other specific arthropathies, not elsewhere classified, right shoulder (principal); F17.200 Nicotine dependence, unspecified, uncomplicated
CPT/HCPCS: 96372; 99283; A9270

== ENCOUNTER 2023-05-23 08:00 | Outpatient (CLI) | payer OTHER, MEDICAID ==
--- NOTE | 2023-05-23 17:40 | XRAY Report ---
PROCEDURE: Shoulder 3 View RT INDICATIONS: RIGHT SHOULDER PAIN TECHNIQUE: 3 views of the shoulder were acquired. COMPARISON: None. FINDINGS: Bones: No fractures or dislocations. No suspicious bony lesions. Visualized ribs appear intact. Soft tissues: No suspicious soft tissue calcifications. The visualized lungs are within normal limi ts. IMPRESSION: No acute bony abnormality. Reviewed by: Ana Villalobos MD on 05/23/2023 5:39 PM PST Approved by: Ana Villalobos MD on 05/23/2023 5:39 PM PST Station ID: [id number]
== END 2023-05-23 23:59 | disposition home or self-care (01) ==
LOC: DI.WOS 08:00
PROVIDERS: ATTEND Orthopaedic Surgery
DX: S46.011A Strain of muscle(s) and tendon(s) of the rotator cuff of right shoulder, initial encounter (principal)

== ENCOUNTER 2023-07-11 08:00 | Outpatient (CLI) | payer OTHER, MEDICAID ==
--- NOTE | 2023-07-11 16:01 | XRAY Report ---
PROCEDURE: Cervical Spine Complete INDICATIONS: NECK PAIN TECHNIQUE: 5 view(s) of the cervical spine were acquired. COMPARISON: None. FINDINGS: Bones: No fractures or dislocations to the C7-T1 level. The lateral masses of C1 appear intact on t he odontoid view. No suspicious bony lesions. Overall cervical straightening is present. Multilevel trace retrolisthesis is present. Moderate to severe multilevel degenerative disc space narrowing is present throughout the cervical spine most severe at C3-4, C4-5. There is mild to moderate appearance of lower cervical foraminal narrowing bilaterally most prominent from C5-6, C6-7. Multilevel uncover tebral arthropathy. Soft tissues: No prevertebral soft tissue swelling. IMPRESSION: Multilevel degenerative changes most severe C5-6, C6-7. Reviewed by: Ana Villalobos MD on 07/11/2023 4:00 PM PDT Approved by: Ana Villalobos MD on 07/11/2023 4:00 PM PDT Station ID: [id number]
== END 2023-07-11 23:59 | disposition home or self-care (01) ==
LOC: DI.WOS 08:00
PROVIDERS: ATTEND Orthopaedic Surgery
DX: M47.22 Other spondylosis with radiculopathy, cervical region (principal)

== ENCOUNTER 2023-08-14 07:44 | Outpatient (CLI) | payer OTHER, MEDICAID ==
--- NOTE | 2023-08-14 14:29 | MRI Report ---
PROCEDURE: MRI cervical spine without contrast INDICATIONS: CERVICAL RADICULOPATHY TECHNIQUE: Multiplanar multisequential MRI of the cervical spine was obtained without contrast. COMPARISON: None. FINDINGS: Alignment and Curvature: There is normal bony alignment. Bone Marrow: Multilevel chronic degenerative endplate changes Spinal Cord: No cord edema or convincing gliosis Paraspinal Soft Tissues: No paravertebral masses. Prevertebral soft tissues are normal in thickness . C2-C3: Disc spaces preserved. Small posterior disc osteophyte complex without central or foraminal s tenosis C3-C4: Disc space narrowing and posterior disc osteophyte complex results in moderate central stenos is flattening the ventral cervical cord. Arthropathy results in severe left and right right foraminal stenosis C4-C5: Disc space narrowing with posterior disc osteophyte complex results in moderate central steno sis with flattening the ventral surface cord. Arthropathy results in moderate left and severe right f oraminal stenosis C5-C6: Disc space narrowing with posterior disc osteophyte complex and hypertrophic arthropathy resu lts in moderate to severe central stenosis with indentation of the ventral cord. Moderate left and r ight foraminal stenosis C6-C7: Disc space narrowing posterior disc osteophyte results in moderate central stenosis with flat tening the ventral cord. Moderate right and severe left foraminal stenosis. C7-T1: Disc spaces preserved. No central or foraminal stenosis. IMPRESSION: Multilevel degenerative disc disease and arthropathy results in varying degrees of central and forami nal stenosis including moderate severe central stenosis at the C5-6 and severe foraminal stenosis at C6-7 Reviewed by: Hector Diaz MD on 08/14/2023 1:28 PM VICKIE Approved by: Hector Diaz MD on 08/14/2023 1:28 PM VICKIE Station ID: [id number]
== END 2023-08-14 07:45 | disposition home or self-care (01) ==
LOC: DI 07:44
PROVIDERS: ATTEND Orthopaedic Surgery
DX: M47.812 Spondylosis without myelopathy or radiculopathy, cervical region (principal); M50.30 Other cervical disc degeneration, unspecified cervical region; M48.02 Spinal stenosis, cervical region